=== PATIENT | female | born 1980 | race Two or more races ===

== ENCOUNTER 2023-04-05 03:40 | Emergency (ER) | payer OTHER ==
[~2023-04-05] VITALS: Ht 157.5 cm; Wt 78.5 kg
[~2023-04-05 03:40] MED LIST: Cyclobenzaprine5 MG PO; DESO.25TC TOP; FLUC200 PO; KETO15TC TP; LORA10ER PO; PRED10 PO; Ultram50 MG PO
[2023-04-05 05:01] VITALS: BP 149/98
== END 2023-04-05 05:40 | disposition left against medical advice (07) ==
LOC: ER 03:40
DX: S09.90XA Unspecified injury of head, initial encounter (principal); M54.2 Cervicalgia; F17.200 Nicotine dependence, unspecified, uncomplicated; Z79.899 Other long term (current) drug therapy; Z88.0 Allergy status to penicillin; Y08.02XA Assault by strike by baseball bat, initial encounter
CPT/HCPCS: 70450; 72125; 99284-25